=== PATIENT | male | born 1945 ===

== ENCOUNTER 2022-12-10 10:03 | Outpatient (CLI) | payer MEDICARE, OTHER | END 2022-12-10 10:04 | disposition home or self-care (01) | LOC: CSHWCC 10:03 | PROVIDERS: ATTEND Physician Assistant | DX: E10.22 Type 1 diabetes mellitus with diabetic chronic kidney disease (principal); N18.9 Chronic kidney disease, unspecified; E66.01 Morbid (severe) obesity due to excess calories; I87.303 Chronic venous hypertension (idiopathic) without complications of bilateral lower extremity | CPT/HCPCS: 97597; 97598; 99213; G0463 ==

== ENCOUNTER 2022-12-13 14:00 | Outpatient (CLI) | payer MEDICARE, OTHER | END 2022-12-13 14:01 | disposition home or self-care (01) | LOC: CSHWCC 14:00 | PROVIDERS: ATTEND Physician Assistant | DX: I87.2 Venous insufficiency (chronic) (peripheral) (principal) | CPT/HCPCS: 29581 ==

== ENCOUNTER 2022-12-15 14:06 | Outpatient (CLI) | payer MEDICARE, OTHER | END 2022-12-15 14:07 | disposition home or self-care (01) | LOC: CSHWCC 14:06 | PROVIDERS: ATTEND Physician Assistant | DX: E10.22 Type 1 diabetes mellitus with diabetic chronic kidney disease (principal); N18.9 Chronic kidney disease, unspecified; I87.303 Chronic venous hypertension (idiopathic) without complications of bilateral lower extremity; I89.0 Lymphedema, not elsewhere classified; E66.01 Morbid (severe) obesity due to excess calories | CPT/HCPCS: 29581 ==

== ENCOUNTER 2022-12-17 11:08 | Outpatient (CLI) | payer MEDICARE | END 2022-12-17 11:09 | disposition home or self-care (01) | LOC: CSHWCC 11:08 | PROVIDERS: ATTEND Physician Assistant | DX: I87.303 Chronic venous hypertension (idiopathic) without complications of bilateral lower extremity (principal); I89.0 Lymphedema, not elsewhere classified; E66.01 Morbid (severe) obesity due to excess calories; E10.22 Type 1 diabetes mellitus with diabetic chronic kidney disease; N18.9 Chronic kidney disease, unspecified | CPT/HCPCS: 29581 ==

== ENCOUNTER 2022-12-20 08:00 | Outpatient (CLI) | payer MEDICARE | END 2022-12-20 08:01 | disposition home or self-care (01) | LOC: CSHWCC 08:00 | PROVIDERS: ATTEND Physician Assistant | DX: E10.22 Type 1 diabetes mellitus with diabetic chronic kidney disease (principal); I87.303 Chronic venous hypertension (idiopathic) without complications of bilateral lower extremity; I89.0 Lymphedema, not elsewhere classified; E66.01 Morbid (severe) obesity due to excess calories | CPT/HCPCS: 29581 ==

== ENCOUNTER 2022-12-23 08:25 | Outpatient (CLI) | payer MEDICARE, OTHER | END 2022-12-23 08:26 | disposition home or self-care (01) | LOC: CSHWCC 08:25 | PROVIDERS: ATTEND Physician Assistant | DX: I87.313 Chronic venous hypertension (idiopathic) with ulcer of bilateral lower extremity (principal); I89.0 Lymphedema, not elsewhere classified; E66.01 Morbid (severe) obesity due to excess calories; E10.22 Type 1 diabetes mellitus with diabetic chronic kidney disease; N18.9 Chronic kidney disease, unspecified; L97.929 Non-pressure chronic ulcer of unspecified part of left lower leg with unspecified severity; L97.919 Non-pressure chronic ulcer of unspecified part of right lower leg with unspecified severity | CPT/HCPCS: 97597; 97598 ==

== ENCOUNTER 2022-12-27 14:54 | Outpatient (CLI) | payer OTHER | END 2022-12-27 14:55 | disposition home or self-care (01) | LOC: CSHWCC 14:54 | PROVIDERS: ATTEND Physician Assistant | DX: E10.22 Type 1 diabetes mellitus with diabetic chronic kidney disease (principal); N18.9 Chronic kidney disease, unspecified; I89.0 Lymphedema, not elsewhere classified; I87.313 Chronic venous hypertension (idiopathic) with ulcer of bilateral lower extremity; E66.01 Morbid (severe) obesity due to excess calories | CPT/HCPCS: 29581 ==

== ENCOUNTER 2022-12-29 09:59 | Outpatient (CLI) | payer OTHER | END 2022-12-29 10:00 | disposition home or self-care (01) | LOC: CSHWCC 09:59 | PROVIDERS: ATTEND Physician Assistant | DX: E11.22 Type 2 diabetes mellitus with diabetic chronic kidney disease (principal); N18.9 Chronic kidney disease, unspecified; I89.0 Lymphedema, not elsewhere classified; I87.313 Chronic venous hypertension (idiopathic) with ulcer of bilateral lower extremity; E66.01 Morbid (severe) obesity due to excess calories | CPT/HCPCS: 29581 ==

== ENCOUNTER 2023-01-03 15:29 | Outpatient (CLI) | payer OTHER | END 2023-01-03 15:30 | disposition home or self-care (01) | LOC: CSHWCC 15:29 | PROVIDERS: ATTEND Preventive Medicine Undersea and Hyperbaric Medicine | DX: I87.313 Chronic venous hypertension (idiopathic) with ulcer of bilateral lower extremity (principal); I89.0 Lymphedema, not elsewhere classified; E66.01 Morbid (severe) obesity due to excess calories; L97.919 Non-pressure chronic ulcer of unspecified part of right lower leg with unspecified severity; L97.929 Non-pressure chronic ulcer of unspecified part of left lower leg with unspecified severity; E10.22 Type 1 diabetes mellitus with diabetic chronic kidney disease; N18.9 Chronic kidney disease, unspecified | CPT/HCPCS: 97597; 97598 ==

== ENCOUNTER 2023-01-06 10:26 | Outpatient (CLI) | payer OTHER | END 2023-01-06 10:27 | disposition home or self-care (01) | LOC: CSHWCC 10:26 | PROVIDERS: ATTEND Preventive Medicine Undersea and Hyperbaric Medicine | DX: E10.22 Type 1 diabetes mellitus with diabetic chronic kidney disease (principal); N18.9 Chronic kidney disease, unspecified; I87.313 Chronic venous hypertension (idiopathic) with ulcer of bilateral lower extremity; I89.0 Lymphedema, not elsewhere classified; E66.01 Morbid (severe) obesity due to excess calories | CPT/HCPCS: 29581 ==

== ENCOUNTER 2023-01-11 08:55 | Outpatient (CLI) | payer OTHER | END 2023-01-11 08:56 | disposition home or self-care (01) | LOC: CSHWCC 08:55 | PROVIDERS: ATTEND Physician Assistant | DX: I87.313 Chronic venous hypertension (idiopathic) with ulcer of bilateral lower extremity (principal); I89.0 Lymphedema, not elsewhere classified; E66.01 Morbid (severe) obesity due to excess calories; E10.22 Type 1 diabetes mellitus with diabetic chronic kidney disease; N18.9 Chronic kidney disease, unspecified; L97.919 Non-pressure chronic ulcer of unspecified part of right lower leg with unspecified severity; L97.929 Non-pressure chronic ulcer of unspecified part of left lower leg with unspecified severity | CPT/HCPCS: 29581; 97597 ==

== ENCOUNTER 2023-01-18 11:17 | Outpatient (CLI) | payer OTHER | END 2023-01-18 11:18 | disposition home or self-care (01) | LOC: CSHWCC 11:17 | PROVIDERS: ATTEND Physician Assistant | DX: I87.313 Chronic venous hypertension (idiopathic) with ulcer of bilateral lower extremity (principal); E10.22 Type 1 diabetes mellitus with diabetic chronic kidney disease; E66.01 Morbid (severe) obesity due to excess calories; I89.0 Lymphedema, not elsewhere classified; N18.9 Chronic kidney disease, unspecified; L97.929 Non-pressure chronic ulcer of unspecified part of left lower leg with unspecified severity; L97.919 Non-pressure chronic ulcer of unspecified part of right lower leg with unspecified severity | CPT/HCPCS: 29581 ==

== ENCOUNTER 2023-02-15 10:49 | Outpatient (CLI) | payer MEDICARE | END 2023-02-15 10:50 | disposition home or self-care (01) | LOC: CSHWCC 10:49 | PROVIDERS: ATTEND Preventive Medicine Undersea and Hyperbaric Medicine | DX: I87.313 Chronic venous hypertension (idiopathic) with ulcer of bilateral lower extremity (principal); L97.919 Non-pressure chronic ulcer of unspecified part of right lower leg with unspecified severity; L97.929 Non-pressure chronic ulcer of unspecified part of left lower leg with unspecified severity; I89.0 Lymphedema, not elsewhere classified | CPT/HCPCS: 29581 ==

== ENCOUNTER 2023-02-23 14:11 | Outpatient (CLI) | payer MEDICARE | END 2023-02-23 14:12 | disposition home or self-care (01) | LOC: CSHWCC 14:11 | PROVIDERS: ATTEND Preventive Medicine Undersea and Hyperbaric Medicine | DX: I87.313 Chronic venous hypertension (idiopathic) with ulcer of bilateral lower extremity (principal); I89.0 Lymphedema, not elsewhere classified; L97.919 Non-pressure chronic ulcer of unspecified part of right lower leg with unspecified severity; L97.929 Non-pressure chronic ulcer of unspecified part of left lower leg with unspecified severity; E08.22 Diabetes mellitus due to underlying condition with diabetic chronic kidney disease; E66.01 Morbid (severe) obesity due to excess calories | CPT/HCPCS: 99212; G0463 ==

== ENCOUNTER 2023-03-09 15:16 | Outpatient (CLI) | payer MEDICARE | END 2023-03-09 15:17 | disposition home or self-care (01) | LOC: CSHWCC 15:16 | PROVIDERS: ATTEND Physician Assistant | DX: I87.313 Chronic venous hypertension (idiopathic) with ulcer of bilateral lower extremity (principal); L97.919 Non-pressure chronic ulcer of unspecified part of right lower leg with unspecified severity; L97.929 Non-pressure chronic ulcer of unspecified part of left lower leg with unspecified severity; E10.22 Type 1 diabetes mellitus with diabetic chronic kidney disease; N18.9 Chronic kidney disease, unspecified; I89.0 Lymphedema, not elsewhere classified; E66.01 Morbid (severe) obesity due to excess calories | CPT/HCPCS: 29581 ==

== ENCOUNTER 2023-03-16 16:39 | Outpatient (CLI) | payer MEDICARE | END 2023-03-16 16:40 | disposition home or self-care (01) | LOC: CSHWCC 16:39 | PROVIDERS: ATTEND Nurse Practitioner Family | DX: I87.313 Chronic venous hypertension (idiopathic) with ulcer of bilateral lower extremity (principal); L97.919 Non-pressure chronic ulcer of unspecified part of right lower leg with unspecified severity; L97.929 Non-pressure chronic ulcer of unspecified part of left lower leg with unspecified severity; I89.0 Lymphedema, not elsewhere classified; E10.22 Type 1 diabetes mellitus with diabetic chronic kidney disease; E66.01 Morbid (severe) obesity due to excess calories | CPT/HCPCS: 11042 ==

== ENCOUNTER 2023-03-23 15:32 | Outpatient (CLI) | payer OTHER | END 2023-03-23 15:33 | disposition home or self-care (01) | LOC: CSHWCC 15:32 | PROVIDERS: ATTEND Nurse Practitioner Family | DX: I87.313 Chronic venous hypertension (idiopathic) with ulcer of bilateral lower extremity (principal); E10.22 Type 1 diabetes mellitus with diabetic chronic kidney disease; E66.01 Morbid (severe) obesity due to excess calories; I89.0 Lymphedema, not elsewhere classified | CPT/HCPCS: 99213; G0463 ==